=== PATIENT | female | born 1950 | race Caucasian/White ===

== ENCOUNTER 2019-05-30 11:14 | Emergency (ER) | payer OTHER ==
[~2019-05-30] VITALS: Ht 157.5 cm; Wt 81.7 kg
[~2019-05-30 11:14] MED LIST: EPIPEN 2-P0.3 MG/0.3 IM; MEDROLDOSEPACK PO; PREDNISONE50 MG PO; SUPRAX400 MG PO; SYNTHROID75 MCG PO; ZANTAC 150MG T150 M1 PO
[2019-05-30 11:19] VITALS: BP 145/82
== END 2019-05-30 12:00 | disposition home or self-care (01) ==
LOC: ER 11:14
DX: S61.211A Laceration without foreign body of left index finger without damage to nail, initial encounter (principal); S61.213A Laceration without foreign body of left middle finger without damage to nail, initial encounter; E03.9 Hypothyroidism, unspecified; Z90.710 Acquired absence of both cervix and uterus; Z90.49 Acquired absence of other specified parts of digestive tract; Z88.1 Allergy status to other antibiotic agents; Z88.2 Allergy status to sulfonamides; Z88.8 Allergy status to other drugs, medicaments and biological substances; W26.8XXA Contact with other sharp object(s), not elsewhere classified, initial encounter; Y93.89 Activity, other specified; Y92.89 Other specified places as the place of occurrence of the external cause; Y99.8 Other external cause status